=== PATIENT | male | born 1955 | race Caucasian/White ===

== ENCOUNTER → 2022-04-25 | Outpatient (CLI) | payer OTHER | LOC: MRI 09:36 | PROVIDERS: ATTEND Urology | DX: D41.00 Neoplasm of uncertain behavior of unspecified kidney (principal) | CPT/HCPCS: 74181 ==

== ENCOUNTER → 2022-07-19 | Outpatient (CLI) | payer OTHER | LOC: MRI 10:58 | PROVIDERS: ATTEND Urology | DX: N20.0 Calculus of kidney (principal); N18.30 Chronic kidney disease, stage 3 unspecified; N28.1 Cyst of kidney, acquired | CPT/HCPCS: 74181 ==